=== PATIENT | male | born 1950 | race African-American/Black ===

== ENCOUNTER 2017-01-19 07:28 | Inpatient (IN) | payer BC ==
[2017-01-12 12:59] LABS: BASOPHILS 0.8 %; BASOPHILS ABSOLUTE 0.06 10/3/uL (0.0-0.16); EOSINOPHILS 4.9 %; EOSINOPHILS ABSOLUTE 0.36 10/3/uL (0.0-0.53); HEMATOCRIT 29.1 % (40.0-51.0); HEMOGLOBIN 9.3 g/dL (13.6-17.8); IMMATURE GRANULOCYTES 0.1 %; IMMATURE GRANULOCYTES ABSOLUTE 0.01 10/3/uL (0.0-0.11); LYMPHOCYTES 20.7 %; LYMPHOCYTES ABSOLUTE 1.53 10/3/uL (0.67-4.30); MEAN CORPUSCULAR VOLUME 78.2 fL (80-100); MONOCYTES 5.5 %; MONOCYTES ABSOLUTE 0.41 10/3/uL (0.21-1.20); NEUTROPHILS ABSOLUTE 5.03 10/3/uL (2.02-8.40); PLATELET COUNT 177 10/3/uL (150-400); PROTIME (NOT ORD) 13.4 SEC (12.0-14.5); RBC DISTRIBUTION WIDTH 17.2 % (12.0-16.0); RED CELL COUNT 3.72 10/6/uL (4.7-6.1); WHITE BLOOD CELLS 7.4 10/3/uL (4.5-10.5)
[2017-01-12 13:00] LABS: MANUAL DIFF NO %
[2017-01-12 13:04] LABS: ASCORBIC ACID (UR NOT ORDER) NEG (NEG); BILIRUBIN, URINE NEGATIVE (NEG); KETONE, URINE NEGATIVE (NEG); LEUKOCYTE ESTERASE(NOT OR NEG (NEG); WBC (NOT ORDERED) (RFLEX) < 1 (0-5)
[2017-01-12 13:13] LABS: A/G RATIO 1.1 (0.7-1.9); CALCIUM, SERUM 9.9 MG/DL (8.5-10.4); CHLORIDE, SERUM 110 MMOL/L (96-112); CO2 (CARBON DIOXIDE) 25 MMOL/L (24-34); GLOBULIN 3.6 G/DL (2.5-4.1); POTASSIUM, SERUM 4.2 MMOL/L (3.5-5.3); SGOT(AST) 17 U/L (5-40); SGPT(ALT) 18 U/L (5-65); SODIUM, SERUM 140 MMOL/L (135-148); TOTAL BILIRUBIN 0.4 MG/DL (0-1.2); TOTAL PROTEIN 7.6 G/DL (6.0-8.5)
[2017-01-12 13:14] LABS: ALKALINE PHOSPHATASE 66 U/L (45-117); BUN (BLOOD UREA NITROGEN) 18 MG/DL (6-23); CREATININE 1.39 MG/DL (0.70-1.30); GFR AFRICAN AMERICAN 62 ML/MIN (>=60); GFR NON AFRICAN AMERICAN 53 ML/MIN (>=60); GLUCOSE, SERUM 123 MG/DL (60-99)
[2017-01-12 13:25] LABS: PLATELET ESTIMATE ADQ (ADEQUATE)
[2017-01-12 13:26] LABS: ANISOCYTOSIS 1+ (5-10/OIF) (0-5/OIF); GIANT PLATELET OCC; MICROCYTES 1+ (5-10/OIF) (0-5/OIF); POIKILOCYTOSIS 1+ (5-10/OIF) (0-5/OIF); POLYCHROMASIA 1+ (2-5/OIF) (0-1/OIF)
--- NOTE | ~2017-01-19 | OP ---
Record Of Operation [facility] [address] [place]. [address] NAME: RASHAWN SUAZO : 54 STATUS : ADM IN PAT#: [id number] AGE: 66 ADM/REG DATE : 01/19/17 MR#: [id number] REPORT SERV DATE: 01/19/17 DICTATED BY: CHARISMA REIS JR. DATE: 01/19/17 REPORT STATUS : Draft TRANSCRIBED BY: MODL DATE: 01/19/17 DATE OF PROCEDURE: 01/19/2017 PREOPERATIVE DIAGNOSES: Right lower lobe non-small cell lung cancer, chronic obstructive pulmonary disease, hypertension, chronic kidney disease stage 2 to 3, peripheral neuropathy, hepatitis C positive, chronic pain syndrome, avascular necrosis, coronary artery disease, and anemia of chronic disease. POSTOPERATIVE DIAGNOSES: Right lower lobe non-small cell lung cancer, chronic obstructive pulmonary disease, hypertension, chronic kidney disease stage 2 to 3, peripheral neuropathy, hepatitis C positive, chronic pain syndrome, avascular necrosis, coronary artery disease, and anemia of chronic disease. NAME OF OPERATION: Bronchoscopy, right thoracoscopy with right lower lobectomy, complete mediastinal node dissection og stations 7, 9, 11R, and intercostal nerve block. SURGEON: Dr. Charisma Reis Jr. RESIDENT SURGEON: Dr. Brendan Zaman. COT[employer] MEAT PRESSER: Walter Duran. ANESTHESIA: General endotracheal. FINDINGS: The patient was noted to have very dense fibrotic tissue. Dissection planes were difficult. We were able to dissect out and remove the lower lobe thoracoscopically. There were multiple mucus secretions and plugs that had to be removed with bronchoscopy. Margins were negative. Final pathology is pending. The right upper and middle lobe fully re- expanded. DETAILS OF OPERATION: After adequate general anesthesia, the patient was intubated. A bronchoscopy was performed noting no endobronchial lesions. He had a significant amount of mucus that had to be evacuated. A left-sided double-lumen endotracheal tube was then placed. The patient was then positioned in the left lateral decubitus position where the right chest was prepped and draped in a routine sterile fashion. A small incision was made overlying the lower intercostal space. A separate anterior trocar incision was also made. Through these two incision sites, above findings noted. The inferior pulmonary ligament was then taken down. The inferior pulmonary vein was identified and transected with the vascular stapler. The superior pulmonary vein was preserved. Bronchus was identified and dissected out. It was divided with a DINORAH stapler. The fissure was divided with multiple firings of DINORAH stapler with tissue reinforcements. The lung was placed in a specimen bag and withdrawn through the anterior trocar site. Saline was placed in the chest cavity where there was no air leaks noted. Hemostasis was obtained. Nodes from the subcarinal inferior pulmonary ligament and hilar regions were removed. An intercostal nerve block was performed. A 20-Z[place]an chest tube was then placed. The lung was reinflated. The trocar sites were closed with running Vicryl Record Of Operation [facility] [id number] [place]. [address] NAME: RASHAWN SUAZO : 54 STATUS : ADM IN [facility]#: [id number] AGE: 66 ADM/REG DATE : 01/19/17 MR#: [id number] REPORT SERV DATE: 01/19/17 DICTATED BY: CHARISMA REIS JR. DATE: 01/19/17 REPORT STATUS : Draft TRANSCRIBED BY: NI DATE: 01/19/17 sutures. The skin was closed with running monofilament suture. A Dermabond dressing was applied and the procedure was terminated at this point. The patient tolerated the procedure well and taken back to recovery room in stable condition. MELI/NI Charisma Reis Jr., M.D. / [id number] CC: Mickey Sanchez Jr.
[~2017-01-19 07:28] MED LIST: *UNABLE3; ALLEGRA180 PO; AMIT10 PO; APRES10B PO; ASA5GR PO; ASAB PO; CEFT5 PO; CELEBREX2 PO; FENOFIBRATE PO; FESO4 PO; FLEX PO; FLOMAX4 PO; HYDROCHLOROT25 MG PO; KLONO2 PO; LANTUS SC; LIPITOR10 PO; LISINOPRIL40 MG PO; LYRICA150 MG PO; MIRALAXPKT PO; MSCONT100 PO; MSCONT15 PO; MULTIPLE VIT PO; NOVOLOG SC; PCET PO; PRIN20 PO; ROXICODONE30 MG PO; [UNRECOGNIZED DRUG - OTHER] OR
[2017-01-20 05:22] LABS: CHLORIDE, SERUM 106 MMOL/L (96-112); CO2 (CARBON DIOXIDE) 22 MMOL/L (24-34); POTASSIUM, SERUM 4.7 MMOL/L (3.5-5.3); SODIUM, SERUM 139 MMOL/L (135-148)
[2017-01-20 05:26] LABS: BUN (BLOOD UREA NITROGEN) 28 MG/DL (6-23); GFR AFRICAN AMERICAN 42 ML/MIN (>=60); GFR NON AFRICAN AMERICAN 36 ML/MIN (>=60); GLUCOSE, SERUM 196 MG/DL (60-99)
[2017-01-20 05:40] LABS: BASOPHILS 0.1 %; BASOPHILS ABSOLUTE 0.01 10/3/uL (0.0-0.16); EOSINOPHILS 0 %; HEMATOCRIT 26.9 % (40.0-51.0); HEMOGLOBIN 8.9 g/dL (13.6-17.8); IMMATURE GRANULOCYTES 0.1 %; IMMATURE GRANULOCYTES ABSOLUTE 0.01 10/3/uL (0.0-0.11); LYMPHOCYTES 8.4 %; LYMPHOCYTES ABSOLUTE 0.73 10/3/uL (0.67-4.30); MEAN CORPUS HGB CONC 33.1 g/dL (32.0-36.0); MEAN CORPUSCULAR HEMOGLOB 25.5 pg (26.0-34.0); MEAN CORPUSCULAR VOLUME 77.1 fL (80-100); MONOCYTES 8.2 %; MONOCYTES ABSOLUTE 0.71 10/3/uL (0.21-1.20); NEUTROPHILS 83.2 %; NEUTROPHILS ABSOLUTE 7.19 10/3/uL (2.02-8.40); PLATELET COUNT 163 10/3/uL (150-400); RBC DISTRIBUTION WIDTH 16.7 % (12.0-16.0); RED CELL COUNT 3.49 10/6/uL (4.7-6.1); WHITE BLOOD CELLS 8.7 10/3/uL (4.5-10.5)
[2017-01-20 05:47] LABS: MANUAL DIFF NO %
[2017-01-20 06:23] LABS: PLATELET ESTIMATE ADQ (ADEQUATE)
[2017-01-20 06:24] LABS: POIKILOCYTOSIS 1+ (5-10/OIF) (0-5/OIF); POLYCHROMASIA 1+ (2-5/OIF) (0-1/OIF); TEARDROP SHAPED RBCS OCC (0-2/OIF)
[2017-01-20] MEDS ORDERED: MIRALAX POWDER1 PKT PO (08:33)
[2017-01-20] MEDS ORDERED: PCET PO (08:41)
== END 2017-01-20 11:46 | disposition home or self-care (01) | DRG 164 ==
LOC: SDC/OF 07:28 → 5NO 14:35
PROVIDERS: Thoracic Surgery (Cardiothoracic Vascular Surgery)
PROC: 3E0T3CZ (ICD-10-PCS; 2017-01-19)
PROC: 0BBF4ZZ Excision of Right Lower Lung Lobe, Percutaneous Endoscopic Approach (ICD-10-PCS; principal; 2017-01-19 09:15)
PROC: 07B74ZX Excision of Thorax Lymphatic, Percutaneous Endoscopic Approach, Diagnostic (ICD-10-PCS; 2017-01-19 09:15)
DX: C34.31 Malignant neoplasm of lower lobe, right bronchus or lung (principal); M87.9 Osteonecrosis, unspecified; E11.22 Type 2 diabetes mellitus with diabetic chronic kidney disease; E11.40 Type 2 diabetes mellitus with diabetic neuropathy, unspecified; J44.9 Chronic obstructive pulmonary disease, unspecified; I12.9 Hypertensive chronic kidney disease with stage 1 through stage 4 chronic kidney disease, or unspecified chronic kidney disease; N18.3 Chronic kidney disease, stage 3 (moderate); I25.10 Atherosclerotic heart disease of native coronary artery without angina pectoris; D63.8 Anemia in other chronic diseases classified elsewhere; B19.20 Unspecified viral hepatitis C without hepatic coma; E78.2 Mixed hyperlipidemia; Z79.82 Long term (current) use of aspirin; Z87.891 Personal history of nicotine dependence
CPT/HCPCS: 36415; 71020; 80048; 80053; 81001; 82962; 85025; 85610; 86850; 86900; 86901; 87641; 88305; 88307; 88309; 88313; 88331; 88341; 88342; 93005; 94640; A9270-GY; J0690; J2250; J2370; J2405; J2710; J2795; J3010